=== PATIENT | female | born 1995 | race Two or more races ===

== ENCOUNTER 2024-09-26 12:33 | Emergency (ER) | payer SELFPAY ==
[2024-09-26] MEDS: Ondansetron 4 MG/2 ML SDV IVPUSH ONE (13:16)
[2024-09-26 13:32] LABS: BASOPHILS ABSOLUTE AUTO 0.05 K/uL (0.00-0.20); BASOPHILS PERCENT AUTO 0.3 % (0.0-1.0); EOSINOPHILS ABSOLUTE AUTO 0.00 K/uL (0.00-0.45); EOSINOPHILS PERCENT AUTO 0.0 % (0.0-6.0); IMMATURE GRAN ABSOLUTE AUTO 0.05 K/uL (0.00-0.05); IMMATURE GRAN PERCENT AUTO 0.3 % (0.0-0.4); LYMPHOCYTES ABSOLUTE AUTO 0.86 K/uL (1.00-4.80); LYMPHOCYTES PERCENT AUTO 5.8 % (24.0-44.0); MEAN PLATELET VOLUME 12.3 fL (9.4-12.3); MONOCYTES ABSOLUTE AUTO 0.91 K/uL (0.00-0.80); MONOCYTES PERCENT AUTO 6.2 % (0.0-8.0); NEUTROPHILS ABSOLUTE AUTO 12.88 K/uL (1.80-7.70); NEUTROPHILS PERCENT AUTO 87.4 % (41.0-71.0); NRBC ABSOLUTE 0.00 K/uL (0.00-0.02); NRBC PERCENT 0.0 /100WBC (0.0-0.2); PLATELET COUNT,PLT 171 K/uL (150-400); RED BLOOD CELL COUNT 4.32 M/uL (4.10-5.30); WHITE BLOOD CELL COUNT,WBC 14.75 K/uL (3.9-11.3)
[2024-09-26 13:54] LABS: A/G RATIO 0.8 (0.9-1.6); ALANINE AMINOTRANSFERASE,ALT 13.0 IU/L (14-63); ASPARTATE AMNIOTRANSFERASE,AST 9.0 IU/L (15-37); BILIRUBIN TOTAL 0.8 mg/dL (0.2-1.0); BLOOD UREA NITROGEN,BUN 9.0 mg/dL (7.0-18.0); CARBON DIOXIDE,CO2 24.7 mmol/L (21.0-32.0); CHLORIDE,CL 104.0 mmol/L (98-107); CREATININE 0.9 mg/dL (0.6-1.0); EST CRCL DRUG DOSING (CG) 72.96 mL/min; GLUCOSE RANDOM 112.0 mg/dL (74-106); POTASSIUM,K 3.5 mmol/L (3.5-5.1); PROTEIN TOTAL,TP 7.3 g/dL (6.4-8.2); SODIUM,NA 139.0 mmol/L (136-145)
[2024-09-26 13:55] LABS: ESTIMATED GFR 89.0 mL/min (>60)
[2024-09-26 14:12] LABS: LACTIC ACID 0.6 mmol/L (0.4-2.0)
[2024-09-26 14:52] LABS: APPEARANCE,URINE SLT CLOUDY; GLUCOSE,URINE NEGATIVE (NEGATIVE); OCCULT BLOOD,URINE SMALL (NEGATIVE)
[2024-09-26 15:04] LABS: EPITHELIAL CELLS,URINE MODERATE (NONE-FEW)
[2024-09-26] MEDS: cefTRIAXone 1 GM in Water For Injection, Sterile 10 ML IVPUSH ONE (15:29)
== END 2024-09-26 15:55 | disposition home or self-care (01) ==
LOC: MW.ED 12:33
DX: N12 Tubulo-interstitial nephritis, not specified as acute or chronic (principal); Z75.3 Unavailability and inaccessibility of health-care facilities
CPT/HCPCS: 36415; 74177; 76705; 80053; 81001; 83605; 83690; 83735; 84703; 85025; 87086; 87088; 87186; 96361; 96374; 96375; 99284; J0696; J2405; J7030; 99283